=== PATIENT | female | born 2000 | race Caucasian/White ===

== ENCOUNTER 2022-11-25 00:39 | Emergency (ER) | payer MEDICAID, SELFPAY ==
[2022-11-25 00:41] VITALS: BP 129/84; PULSE 98; RESP 20; TEMP 36.4; O2SAT 100
--- NOTE | 2022-11-25 00:52 | ED.PREGNANCY ---
HPI - General Chief complaint: Abdominal Pain Stated complaint: Abdominal Pain Time Seen by Provider: 11/25/22 00:51 Source: patient and RN notes reviewed Mode of arrival: ambulatory Limitations: no limitations History of Present Illness HPI Narrative: patient [place] when she got home she had abdominal pain left lower quadrant. She is 32 weeks . She said that when she went to the restroom to urinate there is a small amount of blood in the stool. Complaint: abdominal pain Onset (ago): hour(s) (2) Pain Consistency: constant Location: abdomen (LLQ) Severity: moderate Quality: Cramping and Sharp Relieving factors: none Exacerbating factors: none Associated symptoms: denies other symptoms Vaginal discharge: none Vaginal bleeding: light ( Little blood in the stool after urinating) Patient : Yes Expected Date of Delivery: 01/19/23 Number of Weeks : 32.1 OB History - Current : no complications OB History - Previous Pregnancies: no complications care: followed by OB Related Data : 1 Para: 0 Total number of abortions (spontaneous and elective): 0 Allergies Allergy/AdvReac Type Severity Reaction Status Date / Time No Known Allergies Allergy Verified 11/25/22 00:47 Review of Systems Review of Systems: All systems reviewed & are unremarkable except as noted in HPI and below Constitutional: Constitutional: Denies chills and Denies fever(s) PMFSH Past Medical History Medical History Bipolar affect, depressed Surgical History Surgical History No pertinent past surgical history Social History Social History Smoking status: Current every day smoker Tobacco type: e-cigarettes/vaping Substance use: current Substance use type: marijuana Last use: Daily Lack of Transportation: No Lack of Food: Never True Current Housing: I Have Housing Concerned About Future Housing: No Difficulty Paying Gas/Electric Bills: No Difficulty Paying for Meds: No Currently Unemployed: No Education: Grade School Difficulty w/ Childcare or Family Care: No Spiritual care concerns: No Exam Const: General: healthy appearing, no acute distress and alert Nutritional Appearance: well nourished Orientation/consciousness: patient oriented x3 Limitations: no limitations Other: female tech in room during examination HENMT: Head: normal to inspection Ears: external ears normal Face/Nose/Sinus: Normal external nose present Face and sinus: normal facial exam Mouth: Yes moist mucous membranes Eyes: Conjunctivae: conjunctivae normal Pupils: Equal, round and reactive pupils present EOM: EOMs intact bilaterally Neck: Neck: normal visual inspection Resp: Effort & Inspection: normal respiratory effort Auscultation: clear to auscultation bilaterally Cardio: Rate: regular rate Rhythm: regular rhythm GI: GI Palp: Yes abdominal tenderness, Yes Soft to palpation and Yes Guarding due to palpation present (GI) (LLQ) Auscultation: normal bowel sounds Back/Spine/Pelvis: Cervical Spine: cervical ROM normal Thoracic/Lumbar Spine: thoraco-lumbar ROM normal Skin: General skin exam: normal color Rashes: no rashes Neuro: General: patient oriented x3, moves all extremities, no focal motor deficits and CN's II-XI intact bilaterally Speech: normal speech Gait exam (Neuro): Normal gait present Extrem: General: normal to inspection and no clubbing, cyanosis or edema Psych: Mental Status: mental status grossly normal Affect: normal affect Attitude: cooperative Course Course Emergency Course: Patient went to leave a urine sample vomited, states that she felt a little better after vomiting. Denies being nauseated Vital Signs Vital si
--- NOTE | 2022-11-25 01:16 | PC.NURSE ---
heart tone obtained by MD Bush of 132beats per minute.
[2022-11-25 01:20] LABS: Appearance Urine Clear (Clear); Bilirubin Urine Negative (Negative); Blood Urine 3+ (Negative); Color Urine Light Yellow (Yellow); Glucose Urine UA Negative (Negative); Ketones Urine Negative (Negative); Leukocyte Esterase Ur Trace LEU/UL (Negative); Nitrate Urine Negative (Negative); Protein Urine Negative (Negative); Specific Grav Ur <= 1.005 (1.010-1.020); Urobilinogen Urine 0.2 mg/dL (0.2-1.0); pH Urine 6.5 (5.0-8.0)
[2022-11-25 01:27] LABS: Add Urine Microscopic? YES; Bacteria Urine Trace /hpf; RBC Urine 0-2 /hpf (0-2); Squamous Epithelial Cell Urine Rare /hpf (Few); WBC Urine 0-3 /hpf (0-3)
[2022-11-25] MEDS: SODIUM CHLORIDE 0.9% IV 1,000 ML 999 ML IV CONT (01:40)
[2022-11-25] MEDS: MORPHINE SULFATE (*CRX) 2 MG/ML INJ IV PUSH ×2 (01:48→02:59)
--- NOTE | 2022-11-25 01:59 | PC.NURSE ---
0150: [facility] called to inform that their rig is currently out on a run, but that they will be here for pt transfer to [place] as soon as possible
--- NOTE | 2022-11-25 02:06 | PC.NURSE ---
pt to be transferred to [facility] OB floor room 117
--- NOTE | 2022-11-25 02:46 | PC.NURSE ---
pt reporting some pink/red on her ER bed sheet. this staff member observes light pink stain on bed pad. Informed Md Bush. pt transfer currently waiting for EMS transport.
--- NOTE | 2022-11-25 02:48 | PC.NURSE ---
pt reports that her pain comes and goes. it is really painful when the pain does come it is a 10 out of 10. Md Bush informed.
[2022-11-25] MEDS: ONDANSETRON INJ 4 MG/2 ML VIAL IV PUSH (03:05)
[2022-11-25 03:15] VITALS: BP 122/73; PULSE 70; RESP 18; TEMP 36.7; O2SAT 99
== END 2022-11-25 03:18 | disposition short-term general hospital (02) ==
PROVIDERS: Emergency Provider Emergency Medicine
DX: O26.893 Other specified pregnancy related conditions, third trimester (principal); R10.32 Left lower quadrant pain; Z3A.32 32 weeks gestation of pregnancy
CPT/HCPCS: 81001; 96361; 96374; 96375; 96376; 99285; J2270; J2405; J7030

== ENCOUNTER 2022-11-25 03:35 | Inpatient (IN) | payer MEDICAID, SELFPAY ==
[2022-11-25] VITALS (16 sets, daily range): BP systolic 109–132; BP diastolic 67–102; PULSE 66–110; RESP 18; TEMP 37.1–37.2; O2SAT 99–100; BMI 25.1
[2022-11-25] MEDS: LACTATED RINGERS 1,000 ML 125 ML IV CONT (03:50)
[2022-11-25] MEDS: OXYTOCIN 30 UNITS/NS 500 ML 30 UNITS/500 ML BAG 999 UNITS IV CONT (04:03)
--- NOTE | 2022-11-25 04:24 | P.PCNOB_ITS ---
OB - Delivery Note Procedure Events: Other ( the labor) Delivery monitor: External FHT and External Uterine Route of delivery: Laceration Description: Vaginal Specimen: Yes Quantitative Blood Loss (ml): 300 Anesthesia type: None Disposition: Floor Complications: none Narrative: patient presented in active labor and quickly delivered viable male infant. Cord was clamped and cut and placenta then did deliver spontaneously. Baby was taken to the nursery for evaluation. After delivery of the placenta cervix which item vulva were inspected with right vulvar laceration noted which was oozing slightly. Pressure was placed on this area a and became hemostatic. No suture was placed. At this point the delivery was complete and postoperative condition of mother was good. Baby was being evaluated by medical radiation tech in the nursery. Baby Weeks of gestation at delivery: 32 gender: Male Weight (pounds): 3 Weight (ounces): 5 presentation: vertex Placenta delivery description: Spontaneous Cord Vessel Description: 3 Vessels score one minute: 8 score five minutes: 9 AMG Delivery Billing Delivery Delivery: Delivery Charge
--- NOTE | 2022-11-25 04:27 | P.HP_ITS ---
H&P: HPI History of Present Illness Date/Time: 11/25/22 04:27 22-year-old 1 female at 32 weeks presents as transfer from [facility]. Has had care in [place] but was traveling for the weekend and began to have some contractions after a long walk today. Also has spotting and presented to start on. Was having significant abdominal pain and therefore transferred to [facility]. Upon transfer patient quickly delivered, see operative note for details. Her care at [facility] to her history was without abnormality the no issues. She has had routine regular care she states, go we have no records at this time. Chief Complaint: Review of Systems Review of Systems: All systems reviewed & are unremarkable except as noted in HPI and below PMFSH Past Medical History Medical History Bipolar affect, depressed Surgical History Surgical History No pertinent past surgical history Social History Social History Substance use: current Substance use type: marijuana Last use: Daily Meds Home Medications and Allergies Home Medications Medication Instructions Recorded Confirmed Type No Home Medications 11/25/22 11/25/22 History Allergies Allergy/AdvReac Type Severity Reaction Status Date / Time No Known Allergies Allergy Verified 11/25/22 00:47 Vital Signs Vital Signs - 24 hr 11/25/22 04:16 11/25/22 04:26 Pulse Rate 110 H 101 H Blood Pressure 116/69 132/102 H Exam Const: General: cooperative and healthy appearing Resp: Effort & Inspection: normal respiratory effort Auscultation: clear to auscultation bilaterally Cardio: Rate: regular rate Rhythm: regular rhythm GI: Inspection: normal to inspection Auscultation: normal bowel sounds : Other: See operative note Assessment and Plan Assessment and plan (1) : Code(s): Z34.90 - Encounter for supervision of normal , unspecified, unspecified trimester Status: Acute Plan as baby will be being transferred we will monitor mom for [id number] post delivery and that she will be able to be discharged.
--- NOTE | 2022-11-25 04:31 | P.DS_ITS ---
DS: Admitting Diagnosis Discharge Date 11/25/2022 Admitting Diagnosis DS: Discharge Diagnosis Discharge Diagnosis (1) , delivered: Code(s): O80 - Encounter for full-term uncomplicated delivery Status: Acute OB - DS: Summary OB Procedures : Other ( 32 week delivery) OB Procedures Intrapartum: Spontaneous Vag Delivery OB Procedures: : None Time Spent with Patient Time attestation: Total time spent providing and/or coordinating discharge services: Discharge Plan Discharge Attending physician on discharge: Jeff Linares Discharging Clinician: Jeff Linares Patient Disposition: Home, Self-Care Activity: no straining, no driving and pelvic rest Diet: as tolerated Patient Instructions: Antibiotic Form Stand Alone Forms: General Discharge Information Follow-up/Referrals: UNKNOWN,DOCTOR [Primary Care Provider] - 3 Weeks ( follow-up with OB in [place] in 3 weeks) Discharge Medications: New ibuprofen 800 mg tablet 800 mg PO TID Qty: 30 0RF No Action No Home Medications Date of admission: 11/25/22 03:35 Primary Care Provider: UNKNOWN,DOCTOR Admitting Provider: Jeff Linares Attending physician on admission: Jeff Linares Condition: Stable
[2022-11-25] MEDS: OXYTOCIN 30 UNITS/NS 500 ML 30 UNITS/500 ML BAG 125 UNITS IV CONT (04:36)
[2022-11-25 05:00] LABS: Basophils Absolute Auto 0.1 K/mm3 (0.0-0.1); Basophils Percent Auto 0.3 % (0.2-1.2); Eosinophils Percent Auto 0.1 % (0-4.4); Hematocrit 41.7 % (37.0-47.0); Hemoglobin 14.2 g/dL (12.0-15.0); Immature Granulocyte Absolute 0.21 K/mm3 (0.00-0.031); Immature Granulocyte Percent A 1.3 % (0-0.5); Lymphocytes Absolute Auto 0.92 K/mm3 (0.9-3.2); Lymphocytes Percent Auto 5.6 % (18.3-44.2); Mean Corpuscular HGB Conc 34.1 g/dl (32-36); Mean Corpuscular Hemoglobin 32.5 pg (26-34); Mean Corpuscular Volume 95.4 fl (80-100); Mean Platelet Volume 8.9 fl (7.4-10.4); Monocytes Absolute Auto 0.7 K/mm3 (0.1-0.6); Neutrophils Absolute Auto 14.5 K/mm3 (1.3-6.7); Neutrophils Percent Auto 88.7 % (45.5-73.1); Platelet Count Result 235 k/mm3 (150-375); Red Blood Count 4.37 M/mm3 (4.2-5.4); Red Cell Distribution Width 11.6 % (11.5-14.5); White Blood Count 16.4 K/mm3 (4.5-10.0)
[2022-11-25 05:23] LABS: Alanine Aminotransferase 14 U/L (6-35); Albumin Level 3.4 g/dL (3.5-5.1); Alkaline Phosphatase 108 U/L (38-126); Anion Gap 5 mmol/L (8-16); Aspartate Amino Transferase 23 U/L (14-36); Bilirubin,Total 0.4 mg/dL (0.2-1.3); Blood Urea Nitrogen 5 mg/dL (7-17); Calcium 7.9 mg/dL (8.4-10.2); Carbon Dioxide 21 mmol/L (22-30); Chloride 110 mmol/L (98-107); Estimated Glomerular Filt Rate > 60; Glucose 106 mg/dL (65-110); Potassium 3.6 mmol/L (3.4-5.0); Sodium 136 mmol/L (137-145)
[2022-11-25 06:10] LABS: Hepatitis B Surface Antigen Negative (Negative)
[2022-11-25 06:11] LABS: HIV 1/2 Ab P24 Ag Result Negative (Negative)
--- NOTE | 2022-11-25 06:50 | LDADM ---
This patient, Sarah Lutz, was admitted to OB Post 117 on 11/25/22 at 03:35. Plans for labor, pain management and were discussed with patient. Patient/family oriented to hospital policies and general routines including ID bracelet, bed and alarms, visiting hours, pain management, procedures, bathroom and other care routines, personal items, smoking policy, room service/diet and guest tray routines, security routines, and visiting hours. Patient/Family are encouraged to report perceived risks to care and to ask questions if they do not understand what they are told or what they should do. See OBIX for further documentation.
[2022-11-25] MEDS: WITCH HAZEL 40 PADS 1 PAD TOPICAL (08:09)
[2022-11-25] MEDS: BENZOCAINE 20% AER SPR (*SP) 56 GM CAN 1 SPRAY TOPICAL (08:10)
--- NOTE | 2022-11-25 08:13 | OBPPTRN ---
Patient transferred to post room # 288 via wheelchair accompanied by fob and family. had been transferred to [facility]. PT introductions made and plan of care discussed per post , pain management, breast pumping daily care activities and pending discharge to home. PT received such instructions per one to one discussion, mom baby care guide and demonstrations this shift. PT and fob and family recipients of such instructions and no barriers to learning identified at this time. Oriented to unit, room, information board, rooming in, admission packet and security measures. Patient verbalizes understanding.
[2022-11-25] MEDS: ACETAMINOPHEN 325 MG TABLET 650 MG PO (08:55)
[2022-11-25] MEDS: IBUPROFEN 600 MG TABLET PO (08:56)
[2022-11-25] MEDS: DOCUSATE SODIUM 100 MG CAPSULE PO (08:56)
[2022-11-25] MEDS: POLYSACCHARIDE IRON COMPLEX 150 MG CAPSULE PO (08:56)
[2022-11-25] MEDS: MULTIVIT/MIN/PREN/FOL AC/IRON TABLET 1 TAB PO (08:56)
[2022-11-25] MEDS: LANOLIN (LANSINOH) 7.5 GM CREAM 1 APPLIC TOPICAL (08:57)
--- NOTE | 2022-11-25 13:00 | PC.NURSE ---
PT requested to go outside and vape. PT given policy protocol for a non smoking facility and pt verbalized understanidng of such care.
--- NOTE | 2022-11-25 13:00 | PC.NURSE ---
PT and fob both walked off unit ambulatory to vape.
--- NOTE | 2022-11-25 14:30 | PC.NURSE ---
Breast pump provided due to baby transfer to [facility]. Instructions given on cleaning, care, usage, that there should be no pain, pumping schedule for milk production, collection, and storage of human milk. Parents are encouraged to record pumping schedule on the [feeding sheet/pumping log]. Patient was assessed for correct placement, flange size, to pump for comfort and nipple stretching/stimulation for adequate milk production every 3 hours (8 times in 24 hours) 1-2 times at night. Mother voiced understanding of the education shared along with mom and baby guide for additional resource information. Reported to the primary RN.
--- NOTE | 2022-11-25 16:41 | PC.NURSE ---
Patient was given the opportunity to view the discharge video Mother & Baby Care, The First Two Weeks and to ask questions. Patient declined viewing the video and has been given the mother/baby guide for home reference. Discharge instructions per protocol and verbalized understanding. PT discharged to home ambulatory accompanied by fob and family and taken to waiting car. follow up appts confirmed
[2022-11-27 08:05] LABS: Rapid Plasma Reagin Non-Reactive (NonReactive)
[2022-11-27 08:16] VITALS: BP 119/77; PULSE 100; RESP 18; TEMP 37.4; O2SAT 98
== END 2022-11-25 16:41 | disposition home or self-care (01) | DRG 560 ==
LOC: ANHOBPP 04:35 → ANHOB2 08:15
PROVIDERS: Admitting Provider Obstetrics & Gynecology; Visit Provider Obstetrics & Gynecology
DX: O60.14X0 Preterm labor third trimester with preterm delivery third trimester, not applicable or unspecified (principal); Z37.0 Single live birth; Z3A.32 32 weeks gestation of pregnancy
CPT/HCPCS: 36415; 80053; 85025; 86592; 86703; 86762; 86850; 86900; 86901; 87340; A9270; G0432; J2590; J7120